=== PATIENT | female | born 2000 | race Caucasian/White ===

== ENCOUNTER 2022-12-06 13:47 | Emergency (ER) | payer MEDICAID ==
[~2022-12-06] VITALS: Ht 167.6 cm; Wt 70.8 kg
[2022-12-06 14:52] VITALS: BP 120/71
[2022-12-06] MEDS: LIDOCAINE VISCOUS 2% UD 15 ML UDC MM ONE ×2 (16:00→16:18)
[2022-12-06] MEDS ORDERED: KETOROLAC TROMETHAMINE INJ 60 MG/2 ML VIAL IM ONE (16:00)
[2022-12-06] MEDS ORDERED: CLIN300C12 PO (16:01)
[2022-12-06] MEDS ORDERED: PRED20TA PO (16:01)
[2022-12-06] MEDS ORDERED: KETOROLAC TROMETHAMINE INJ 30 MG/ML VIAL ONE (16:07)
--- NOTE | 2022-12-06 16:18 | NUR ---
waiver signed before medication administration.
--- NOTE | 2022-12-06 16:28 | NUR ---
Patient discharged to home in stable condition. Written and verbal after care instructions given. Patient verbalizes understanding of instruction.
== END 2022-12-06 16:29 | disposition home or self-care (01) ==
LOC: ER 13:53
DX: J02.9 Acute pharyngitis, unspecified (principal); Z60.2 Problems related to living alone; Z79.899 Other long term (current) drug therapy; Z88.0 Allergy status to penicillin
CPT/HCPCS: 99283; 96372; J1885

== ENCOUNTER 2023-03-15 20:26 | Emergency (ER) | payer MEDICAID ==
[~2023-03-15] VITALS: Ht 165.1 cm; Wt 77.1 kg
[~2023-03-15 20:26] MED LIST: CLIN300C12 PO; PRED20TA PO
[2023-03-15 21:43] VITALS: BP 131/88; TEMP 98.1; O2SAT 98
== END 2023-03-15 21:44 | disposition home or self-care (01) ==
LOC: ER 20:32
DX: R07.89 Other chest pain (principal); Z88.0 Allergy status to penicillin; Z60.2 Problems related to living alone
CPT/HCPCS: 71045-TC

== ENCOUNTER 2023-06-17 03:14 | Emergency (ER) | payer MEDICAID ==
[~2023-06-17] VITALS: Ht 167.6 cm; Wt 76.7 kg
[2023-06-17 03:29] VITALS: BP 113/74; TEMP 98.1; O2SAT 98
[2023-06-17] MEDS ORDERED: ALBU18HF2 INH (03:39)
[2023-06-17] MEDS ORDERED: AZIT500T PO (03:39)
[2023-06-17] MEDS ORDERED: BENZ-13 PO (03:39)
== END 2023-06-17 03:46 | disposition home or self-care (01) ==
LOC: ER 03:19
DX: J06.9 Acute upper respiratory infection, unspecified (principal); R05.9 Cough, unspecified; R06.02 Shortness of breath; J45.909 Unspecified asthma, uncomplicated; Z88.0 Allergy status to penicillin; Z60.2 Problems related to living alone

== ENCOUNTER → 2024-02-07 | Emergency (ER) | payer MEDICAID ==
[~2024-02-07] VITALS: Ht 165.1 cm; Wt 79.4 kg
[~2024-02-07] MED LIST changes: +ACET-2605 PO; +ALBU18HF2 INH; +AZIT500T PO; +BENZ-13 PO; +DAKINS QUARTER STRENGTH (0.125%) 480 ML BOTTLE TOP SCH; +DOCU-141 PO; +IBUP-1955 PO; +ONDA4TAB5 PO; +ONDANSETRON HCL/PF 4 MG/2 ML VIAL ONE; +POLY17PO4 PO
[2024-02-07] MEDS: IV NS 0.9% 1,000 ML BAG IV ONE (14:28)
[2024-02-07] MEDS: ONDANSETRON HCL/PF 4 MG/2 ML VIAL IVP ONE (14:29)
[2024-02-07 14:35] LABS: APPEARANCE,URINE Clear (CLEAR); BILIRUBIN,URINE 1+ (NEGATIVE); BLOOD, URINE TRACE-INTA Ery/uL (NEGATIVE); COLOR,URINE YELLOW (YELLOW); KETONES,URINE NEGATIVE (NEGATIVE); LEUKOCYTE ESTERASE ,URINE TRACE (NEGATIVE); NITRITE, URINE NEGATIVE (NEGATIVE); PROTEIN,URINE 1+ mg/dl (NEGATIVE); UGLUCOSE NEGATIVE (NEGATIVE); UROBILINOGEN,URINE 0.2 EU/dL (0.2)
[2024-02-07 14:36] LABS: BASOPHILS # (AUTO) 0.1 K/uL (0.0-0.2); EOSINOPHILS # (AUTO) 0.2 K/uL (0.0-0.7); HEMATOCRIT 37 % (33-45); HEMOGLOBIN 12.2 g/dL (11.5-14.8); LYMPHOCYTES # (AUTO) 1.9 K/uL (0.8-4.8); LYMPHOCYTES % (AUTO) 34.7 % (20.0-44.0); MEAN CORPUSCULAR HEMOGLOBIN 29 PG (26.0-33.0); MEAN CORPUSCULAR HGB CONC 34 g/dl (31.0-36.0); MEAN CORPUSCULAR VOLUME 86 fL (82-100); MONOCYTES # (AUTO) 0.4 K/uL (0.1-1.30); MONOCYTES % (AUTO) 7.4 % (2.0-12.0); NEUTROPHILS % (AUTO) 53.9 % (43.0-81.0); PLATELET COUNT (AUTO) 349 K/uL (150-450); RED BLOOD CELL COUNT(AUTO) 4.26 MIL/uL (4.0-5.2); RED CELL DISTRIBUTION WIDTH 13.2 % (11.5-15.0); WHITE BLOOD COUNT (AUTO) 5.5 K/uL (4.3-11.0)
[2024-02-07 14:39] LABS: PREGNANCY TEST URINE QUAL NEGATIVE (NEGATIVE)
[2024-02-07 14:43] LABS: CALCIUM, SERUM 9.2 mg/dL (8.5-10.1); CREATININE 0.8 mg/dL (0.6-1.3); POTASSIUM 3.8 mmol/L (3.5-5.1)
[2024-02-07 14:48] LABS: ALBUMIN 3.9 g/dL (3.4-5.0); BILIRUBIN,DIRECT 0.1 mg/dL (0.0-0.2); BILIRUBIN,TOTAL 0.5 mg/dL (0.2-1.0); TOTAL PROTEIN, SERUM 7.9 g/dL (6.4-8.2)
[2024-02-07 15:05] LABS: ADD URINE CULTURE NO; BACTERIA,URINE Few /HPF (None Seen); SQUAMOUS EPITHELIAL CELL,UR Few /HPF (None Seen)
[2024-02-07 16:07] VITALS: BP 111/65; TEMP 98.7; O2SAT 100
== END | disposition home or self-care (01) ==
LOC: ER 13:26
DX: K59.00 Constipation, unspecified (principal); R10.31 Right lower quadrant pain; R10.2 Pelvic and perineal pain; J45.909 Unspecified asthma, uncomplicated; Z79.899 Other long term (current) drug therapy; Z79.52 Long term (current) use of systemic steroids; Z60.2 Problems related to living alone; Z88.0 Allergy status to penicillin
CPT/HCPCS: 99285; 96374; 76856; 96361; 85025; 80048; 83690; 80076; 84703; 81001; 36415; J2405; J7030